=== PATIENT | female | born 1985 | race Caucasian/White ===

== ENCOUNTER 2017-09-03 17:14 | Emergency (ER) | payer MEDICAID, OTHER ==
[2017-09-03 17:43] LABS: PLATELET COUNT 284 10^3/uL (150-400)
--- NOTE | 2017-09-03 21:49 | EDPHY ---
H & P Stated Complaint: M1 Hold for SI - Personal History LMP (Females 10-55): Now Current Tetanus Diphtheria and Acellular Pertussis (TDAP): Yes - Medical/Surgical History Hx Asthma: No Hx Chronic Respiratory Disease: No Hx Diabetes: No Hx Cardiac Disease: No Hx Renal Disease: No Hx Cirrhosis: No Hx Alcoholism: No Hx HIV/AIDS: No Hx Splenectomy or Spleen Trauma: No Other PMH: Denies - Social History Smoking Status: Never smoked Time Seen by Provider: 09/03/17 17:45 HPI/ROS: Chief complaint: Suicidal ideation, on a mental health hold History of present illness: This is a 31-year-old female who is suicidal. She states she was kicked out of her sister's house 2 days ago and is therefore homeless. She states she has been drinking alcohol heavily. She started calling her family stating she was suicidal and apparently her mother who lives in [place] contacted [employer] police who brought her to the emergency department on a mental health hold. Again she does state she is having thoughts of killing herself but no specific plan is mentioned. No homicidal ideation. No illness or injury reported. Review of systems: A 10 point review of systems was obtained and other than described above was negative (Tyron Anaya) - Physical Exam Exam: General Appearance: Alert, tearful. Eyes: Pupils equal and round no pallor or injection. ENT, Mouth: Mucous membranes moist. Respiratory: There are no retractions, lungs are clear to auscultation. Cardiovascular: Regular rate and rhythm. Gastrointestinal: Abdomen is soft and non tender, no masses, bowel sounds normal. Neurological: Alert. Strength and sensation intact and symmetrical. Skin: Warm and dry, no rashes. Musculoskeletal: Neck is supple non tender. Extremities are symmetrical, full range of motion. Psychiatric: Appears upset and tearful. (Tyron Anaya) Constitutional: Initial Vital Signs Temperature (C) 36.7 C 09/03/17 17:36 Heart Rate 89 09/03/17 17:36 Respiratory Rate 16 09/03/17 17:36 Blood Pressure 118/84 H 09/03/17 17:36 O2 Sat (%) 96 09/03/17 17:36 O2 Delivery Mode Room Air Allergies/Adverse Reactions: No Known Allergies Allergy (Unverified 09/03/17 17:39) Home Medications: Medication Instructions Recorded NK [No Known Home Meds] 09/03/17 Medical Decision Making ED Course/Re-evaluation: Patient seen under the supervision of my secondary supervising physician Dr. Kate Rothman. Patient is brought to the emergency department on a mental health hold. She is medically evaluated, she is significantly intoxicated. She will need to sober up before she can be cleared for psychiatric evaluation. Care of patient turned over to Dr. Glory Esparza at the end of shift. ( Tyron Anaya) 6:45 a.m.- The patient has been stable overnight. She is still intoxicated though hopefully will be ready for assessment later this morning. The case will be signed out to the oncoming provider Dr. Zavala. (Glory Esparza) The patient was evaluated and managed by the physician hair assistant. I have reviewed this chart and I agree with the findings and plan of care as documented , as indicated by my signature. I am the secondary supervising physician. ( Kate Rothman) Differential Diagnosis: Included but not limited to substance abuse, anxiety, depression, bipolar (Tyron Anaya) Other Provider: Evaluted by [facility] when sober. Wishes to obtain information regarding inpatient alcohol and dual diagnosis treatment programs. Given info by [facility]. Hold vacated by Dr Green. DC to home. (Alena Zavala) - Data [employer] Laboratory Results: Laboratory Results 09/03/17 17:35 09/03/17 17:35 Departure - Departure Disposition: Home, Routine, Self-Care Clinical Impression: Suicidal ideation, Alcoholism Alcohol intoxication Qualifiers: Complication of substance-induced condition: uncomplicated Qualified Code(s): F10.920 - Alcohol use, unspecified with intoxication, uncomplicated Condition: Good Instructions: [facility], Alcohol Intoxication (ED), Suicide Prevention (ED) Additional Instructions: Do not drink alcohol in excessive quantities. You been given resources from [facility] regarding numerous agencies for inpatient alcohol treatment including [facility] and [facility]. Please return to the emergency department or seek care urgently if you are again experiencing significant suicidal ideation, developed chest pain, shortness of breath, vomiting, tremors, or other concerns. Referrals: NONE *PRIMARY CARE P,. [Primary Care Provider] - As per Instructions [facility] [Clinic] - As per Instructions
[2017-09-04 11:46] VITALS: BP 119/69
--- NOTE | 2017-09-04 12:10 | ASMTTCLDSP ---
TLC Discharge Disposition Disposition: Answers: Discharge If Answers: Yes DISCHARGED: Patient/family given suicide hotline info & SAMHSA brochure? Disposition Notes: Notes: In consultation with [facility] ED physician, Alena Zavala MD, and on-call psychiatrist, Brian Green MD, both concurred that the patient does not appear to meet 27-65 criteria requiring psychiatric hospitalization as patient does not appear to be an imminent risk of harm to self due to a mental illness condition. Dr. Green provided telephone order read back vacating M1 hold at 11:00 hrs. The patient stated commitment or ability to keep self safe and denied thoughts of self harm or harm to others. The patient expressed a desire to f/u with substance abuse resources. The patient was given local hotline information and SAMSHA brochure after an attempt and encouraged to follow up with [facility], [facility] Behavior[facility] Health, and [facility] Withdrawal Management. Was patient given the Answers: Not applicable Inpatient Behavioral Health Prohibited Belongings List while in the ED? Date and time M1 hold 09/04/2017 11:00 AM vacated (time format is hh:mm): Type of Hold: Answers: M1/72-hour Hold Hold initiated by: Answers: ED Physician Date Signed: 09/04/2017 12:09 PM Electronically Signed By:Sarah Hercules
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
== END 2017-09-04 11:52 | disposition home or self-care (01) ==
DX: R45.851 Suicidal ideations (principal); F10.229 Alcohol dependence with intoxication, unspecified
CPT/HCPCS: 80305; G0480

== ENCOUNTER 2017-10-10 09:43 | Emergency (ER) | payer MEDICAID ==
--- NOTE | 2017-10-10 10:08 | EDPHY ---
H & P Stated Complaint: SI and ETOH abuse - Personal History Current Tetanus Diphtheria and Acellular Pertussis (TDAP): Unsure - Medical/Surgical History Hx Asthma: No Hx Chronic Respiratory Disease: No Hx Diabetes: No Hx Cardiac Disease: No Hx Renal Disease: No Hx Cirrhosis: No Hx Alcoholism: Yes Hx HIV/AIDS: No Hx Splenectomy or Spleen Trauma: No Other PMH: alcohol abuse - Social History Smoking Status: Never smoked Time Seen by Provider: 10/10/17 09:46 HPI/ROS: CHIEF COMPLAINT: "I just want to kill myself" HISTORY OF PRESENT ILLNESS: 31-year-old female self-described alcoholic arrives on M1 hold accompanied by police. Last drink of alcohol was at 5:00 a.m. Today, states that she has been experiencing suicidal ideation for the past 1.5 years with plan to overdose on heroin. For the past week she has been contacted multiple individuals to see where she can get heroin but does not have immediate accessed heroin. Denies methamphetamine use. Denies self- injurious attempt beyond alcohol. Denies hallucination. Denies seizure. PRIMARY CARE PROVIDER: REVIEW OF SYSTEMS: A ten point review of systems was performed and is negative with the exception of the items mentioned in the HPI PAST MEDICAL & SURGICAL HISTORY: No pertinent medical or surgical history SOCIAL HISTORY: Positive for alcohol use last use 5:00 a.m. Today PHYSICAL EXAM (Prior to examination, patient consented to physical exam, hands were washed and my usual and customary physical exam procedures followed) 1) GENERAL: Well-developed, well-nourished, alert and oriented. Smells of alcohol. Answering questions appropriately. 2) HEAD: Normocephalic, atraumatic 3) HEENT: Pupils equal, round, reactive to light bilaterally. Sclera anicteric. 4) NECK: Full range of motion, no meningeal signs. 5) LUNGS: Clear auscultation bilaterally, no wheezes, no rhonchi, no retractions. 6) HEART: Regular rate and rhythm, no murmur, no heave, no gallop. 7) ABDOMEN: No guarding, no rebound, no focal tenderness, negative McBurney's, negative Orozco's, negative Rovsing's, negative peritoneal sign, 8) MUSCULOSKELETAL: Left volar wrist subacute abrasion with no signs of infection. Otherwise, Moving all extremities, no focal areas of tenderness, no obvious trauma. No peripheral edema or discoloration. 9) BACK: No CVA tenderness, no midline vertebral tenderness, no fluctuance, no step-off, no obvious trauma, no visual or palpable abnormality. 10) SKIN: No rash, no petechiae. 11) Psychiatric: Patient is oriented X 3, there is no agitation. DIFFERENTIAL DIAGNOSIS: In no particular order including but not limited to acute alcohol intoxication, suicidal ideation, homicidal ideation, delirium tremens (Javier Briseno) Constitutional: Initial Vital Signs Temperature (C) 36.6 C 10/10/17 09:55 Heart Rate 98 10/10/17 09:55 Respiratory Rate 16 10/10/17 09:55 Blood Pressure 117/95 H 10/10/17 09:55 O2 Sat (%) 96 10/10/17 09:55 O2 Delivery Mode Room Air Allergies/Adverse Reactions: No Known Allergies Allergy (Unverified 09/03/17 17:39) Home Medications: Medication Instructions Recorded NK [No Known Home Meds] 09/03/17 Medical Decision Making ED Course/Re-evaluation: 10:07 a.m.: Patient is on an M1 hold. She smells of alcohol. Will obtain diagnostic studies including alcohol level. Patient will need to sober in emergency department prior to mental health evaluation depending on alcohol level. I saw this patient independently based on established practice protocols. Care of patient under supervision of secondary supervising physician Dr Goodson with whom I discussed care. (Javier Briseno) I took over care of this patient at 3:00 p.m.. This patient is on an M1 hold for suicidal ideation and alcohol intoxication. The patient is awaiting behavioral health evaluation when appropriately sober. 10:20 p.m., the patient has been accepted for transfer to [facility] psychiatric facility for suicidal ideation. The accepting psychiatrist is Dr. Sandoval. I have filled out the appropriate transfer paperwork. The patient's remaining emergency department course under my care has been uneventful. She was transferred in stable condition. (Sophy Cavazos) Other Provider: Signed out to Dr. Cavazos at 1500 with plan for psychiatric evaluation for suicidal ideation, when no longer intoxicated. (Galen Goodson) - Data Points Laboratory Results: Laboratory Results 10/10/17 10:35 10/10/17 10:35 10/10/17 10/10/17 10/10/17 13:10 10:35 10:35 WBC 3.40 10^3/uL L 10^3/uL (3.80-9.50) RBC 4.72 10^6/uL 10^6/uL (4.18-5.33) Hgb 14.8 g/dL g/dL (12.6-16.3) Hct 43.3 % % (38.0-47.0) MCV 91.7 fL fL (81.5-99.8) MCH 31.4 pg pg (27.9-34.1) MCHC 34.2 g/dL g/dL (32.4-36.7) RDW 13.2 % % (11.5-15.2) Plt Count 273 10^3/uL 10^3/uL (150-400) MPV 10.0 fL fL (8.7-11.7) Neut % (Auto) 57.6 % % (39.3-74.2) Lymph % (Auto) 35.6 % % (15.0-45.0) [place] % (Auto) 6.2 % % (4.5-13.0) Eos % (Auto) 0.0 % L % (0.6-7.6) Baso % (Auto) 0.6 % % (0.3-1.7) Nucleat RBC Rel Count 0.0 % % (0.0-0.2) Absolute Neuts (auto) 1.96 10^3/uL 10^3/uL (1.70-6.50) Absolute Lymphs (auto) 1.21 10^3/uL 10^3/uL (1.00-3.00) Absolute Monos (auto) 0.21 10^3/uL L 10^3/uL (0.30-0.80) Absolute Eos (auto) 0.00 10^3/uL L 10^3/uL (0.03-0.40) Absolute Basos (auto) 0.02 10^3/uL 10^3/uL (0.02-0.10) Absolute Nucleated RBC 0.00 10^3/uL 10^3/uL (0-0.01) Immature Gran % 0.0 % % (0.0-1.1) Immature Gran # 0.00 10^3/uL 10^3/uL (0.00-0.10) Sodium 141 mEq/L mEq/L (135-145) Potassium 3.8 mEq/L mEq/L (3.3-5.0) Chloride 103 mEq/L mEq/L (97-110) Carbon Dioxide 22 mEq/l mEq/l (22-31) Anion Gap 16 mEq/L mEq/L (8-16) BUN 11 mg/dL mg/dL (7-23) Creatinine 0.6 mg/dL mg/dL (0.6-1.0) Estimated GFR > 60 Glucose 81 mg/dL mg/dL (70-100) Calcium 8.7 mg/dL mg/dL (8.5-10.4) Urine Opiates Screen NEGATIVE (NEGATIVE) Urine Barbiturates NEGATIVE (NEGATIVE) Ur Phencyclidine Scrn NEGATIVE (NEGATIVE) Ur Amphetamine Screen NEGATIVE (NEGATIVE) U Benzodiazepines Scrn NEGATIVE (NEGATIVE) Urine Cocaine Screen NEGATIVE (NEGATIVE) U Marijuana (THC) Screen NEGATIVE (NEGATIVE) Ethyl Alcohol 293 mg/dL H mg/dL (0-10) Medications Given: Discontinued Medications Lorazepam (Ativan) 1 mg PO EDNOW ONE Stop: 10/10/17 17:31 Last Admin: 10/10/17 17:37 Dose: 1 mg Departure - Departure Disposition: Other Psych, Not [place] Clinical Impression: Alcohol intoxication, Suicidal ideation
[2017-10-10 10:48] LABS: PLATELET COUNT 273 10^3/uL (150-400)
[2017-10-10] MEDS ORDERED: LORazepam 1 MG TAB PO ONE (17:30)
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
--- NOTE | 2017-10-10 19:37 | ASMTLCPROG ---
Notes Note: Notes: Bed Search- [facility] and [facility] are reviewing for placement. I called and left a message with Sebastien Polanco for a call back. [facility] is at [facility]. Date Signed: 10/10/2017 07:36 PM Electronically Signed By:Lucrecia Grande
[2017-10-10 22:57] VITALS: BP 110/72
--- NOTE | 2017-10-11 11:55 | ASMTLCPROG ---
Notes Note: Notes: [facility], PT was transfered to [facility]. [facility] had to call ed for pt dispo. unknown accepting MD Date Signed: 10/11/2017 11:55 AM Electronically Signed By:Jurgen Banks
--- NOTE | 2017-10-11 12:46 | ASMTLCPROG ---
Notes Note: Notes: Medicaid called, I provided clinicals auth number : [id number] Auth for 4 days with the review on Saturday the . UR person is Kiley who will reach out to [facility] for review. I called [facility] relayed this information and got the accepting DR. Josie Sandoval NP Date Signed: 10/11/2017 12:45 PM Electronically Signed By:Jurgen Banks
--- NOTE | 2017-10-11 12:47 | ASMTTCLDSP ---
TLC Discharge Disposition Disposition: Answers: Transfer Type of Hold: Answers: M1/72-hour Hold For Transfers, Accepting [facility] Facility: For Transfers, Accepting Sarah Sandoval NP Psychiatrist: Date Signed: 10/11/2017 12:46 PM Electronically Signed By:Jurgen Banks
== END 2017-10-10 22:55 ==
LOC: EDUNIT#
DX: R45.851 Suicidal ideations (principal); F10.129 Alcohol abuse with intoxication, unspecified
CPT/HCPCS: 80305; G0480